=== PATIENT | female | born 1990 | race Caucasian/White ===

== ENCOUNTER 2019-01-13 14:47 | Emergency (ER) | payer MEDICAID ==
[~2019-01-13] VITALS: Ht 160 cm; Wt 120.0 kg
[2019-01-13] MEDS ORDERED: ampicillin/sulbac 3gm/NS 100ml 100 ML IV STA (17:18)
[2019-01-13] MEDS ORDERED: ondansetron/PF 4mg/2ml inj IV ONE (17:20)
[2019-01-13] MEDS ORDERED: HYDROcodone/acetaminophen 10/325mg tab PO ONE (17:20)
[2019-01-13] MEDS ORDERED: normal saline 1000ML IV soln IVB ONE (17:20)
[2019-01-13] MEDS ORDERED: clindamycin 600mg/D5W 50ml 50 ML IV ONE (17:40)
[2019-01-13 18:45] VITALS: BP 107/70
== END 2019-01-13 18:46 | disposition home or self-care (01) ==
LOC: ER 14:48
DX: K04.7 Periapical abscess without sinus (principal)
CPT/HCPCS: 64400; 96365; 96375; 99284; J2405; J7030; J0295; J3490